=== PATIENT | female | born 1975 | race Caucasian/White ===

== ENCOUNTER 2020-08-30 23:32 | Emergency (ER) | payer OTHER ==
[2020-08-30] MEDS ORDERED: SULFAMETHOXAZOLE/TRIMETHOPRIM 800MG/160MG D.S. TABLET PO ONE (23:43)
[2020-08-30 23:44] VITALS: BP 146/83; PULSE 100; TEMP 99.5; BMI 30.7
--- NOTE | 2020-08-30 23:44 | PDOC ---
History of Present Illness - General Chief Complaint: Pain Stated Complaint: LEFT EYE IRRITATION Time Seen by Provider: 08/30/20 23:41 History Source: Patient Exam Limitations: No Limitations - History of Present Illness Initial Comments: 08/30/20 23:41 This is a 44-year-old female who comes in complaining of discomfort in the left side of her nose and lower eyelid area. Patient denies any discharge from her eye. Patient denies any headaches nausea or neck stiffness. Patient denies any change in her vision. Allergies: as per nursing notes Past Medical History: none Social history: Lives with family. No smoking. No alcohol. No illicit drugs. Surgical history: None General: No fevers or chills, no weakness, no weight loss HEENT: No change in vision. No sore throat,. No ear pain, left facial discomfort CardioVascular: no chest discomfort. No shortness of breath Respiratory:No cough, or wheezing. Gastrointestinal: no nausea, vomiting, diarrhea or constipation, No rectal bleeding Genitourinary: No dysuria, hematuria, or frequency Musculoskeletal: No joint or muscle pain or swelling Neurologic: No headache, vertigo, dizziness or loss of consciousness Psychiatric: nor depression Skin: No rashes or easy bruising Endocrine: no increased thirst or abnormal weight change Allergic: no skin or latex allergy All other systems reviewed and normal GENERAL: The patient is awake, alert, and fully oriented, in no acute distress. HEENT:Head is normal with no signs of trauma. Eyes: Pupils equal, round and reactive to light, Ears, and Throat are normal. Neck is supple. No Lymphadenopathy. Facial: There is some mild erythema of the left side of her face and the left lateral nose primarily in the upper medial face area. There is minimal tenderness on palpation with no significant increase in warmth. EXTREMITIES:atraumatic, Normal range of motion, no edema. NEUROLOGICAL: Normal speech, normal gait. PSYCH: Normal mood, normal affect. SKIN: Warm, Dry, normal turgor, no rashes or lesions noted. Assessment and plan: This a 44-year-old female with mild probable very early cellulitis of the face. Patient started on Bactrim and will follow-up with her primary care doctor or an ad setter. Past History - Medical History Allergies/Adverse Reactions: Allergies Allergy/AdvReac Type Severity Reaction Status Date / Time Penicillins Allergy Mild Verified 08/30/20 23:46 Home Medications: Ambulatory Orders Sulfamethoxazole/Trimethoprim [Bactrim DS -] 1 tab PO BID #14 tablet 08/30/20 Discharge - Discharge Information Problems reviewed: Yes Clinical Impression/Diagnosis: Facial cellulitis Condition: Stable Disposition: HOME - Admission No - Additional Discharge Information Prescriptions: Sulfamethoxazole/Trimethoprim [Bactrim DS -] 1 tab PO BID #14 tablet - Follow up/Referral Referrals: Maximiliano Vela MD [Primary Care Provider] - - Patient Discharge Instructions Additional Instructions: Take Bactrim 1 tablet twice a day for 7 days. Return to the emergency department immediately with ANY new, persistent or worsening symptoms. Continue any medications as previously prescribed by your physician. You should follow up with your primary doctor as soon as possible regarding today's emergency department visit. . Please make sure your doctor reviews the results of your emergency evaluation. Thank you for coming to the Emergency Department today for your care. It was a pleasure to see you today. Please note that your evaluation is INCOMPLETE until you follow-up with your doctor. - Post Discharge Activity
== END 2020-08-31 00:01 | disposition home or self-care (01) ==
LOC: FER 23:32
DX: L03.211 Cellulitis of face (principal)
CPT/HCPCS: 99283-25

== ENCOUNTER 2021-01-05 04:38 | Day surgery (SDC) | payer OTHER ==
[2021-01-04 11:17] VITALS: BMI 33.9
[2021-01-05 10:52] VITALS: BP 121/59; PULSE 66
[2021-01-05 16:05] VITALS: TEMP 97.8
== END 2021-01-05 10:40 | disposition home or self-care (01) ==
LOC: JASU-ENDO 04:38
PROVIDERS: ATTEND Internal Medicine Gastroenterology
PROC: 0DBN8ZX Excision of Sigmoid Colon, Via Natural or Artificial Opening Endoscopic, Diagnostic (ICD-10-PCS; 2021-01-05)
PROC: 0DBN8ZX Excision of Sigmoid Colon, Via Natural or Artificial Opening Endoscopic, Diagnostic (ICD-10-PCS; 2021-01-05)
PROC: 0DBN8ZX Excision of Sigmoid Colon, Via Natural or Artificial Opening Endoscopic, Diagnostic (ICD-10-PCS; principal; 2021-01-05 09:30)
DX: Z12.11 Encounter for screening for malignant neoplasm of colon (principal); K63.5 Polyp of colon; K64.8 Other hemorrhoids; K59.89 Other specified functional intestinal disorders
CPT/HCPCS: 81025; 88305-TC